=== PATIENT | male | born 1955 | race Caucasian/White ===

== ENCOUNTER 2021-08-04 13:38 | Inpatient (IN) | payer BC ==
[~2021-08-04] VITALS: Ht 180.3 cm; Wt 116.4 kg
[2021-08-04 14:12] LABS: HEMOGLOBIN 15.1 gm/dl (14.0-17.5); RED BLOOD COUNT 5.3 M/UL (4.20-5.50); WHITE BLOOD COUNT 5.5 K/UL (4.5-11.0)
[2021-08-04] MEDS ORDERED: ONDANSETRON HCL8 MG PO (19:24)
[2021-08-04] MEDS ORDERED: AZITHROMYCIN250 MG PO (19:24)
[2021-08-04] MEDS ORDERED: HYDROCHLOROTHIA25 MG PO (19:25)
[2021-08-04] MEDS ORDERED: LOPRESSOR 25 MG25 MG PO (19:25)
[2021-08-04] MEDS ORDERED: FENOFIBRATE160 MG PO (19:25)
[2021-08-04] MEDS ORDERED: LOVASTATIN40 MG PO (19:25)
[2021-08-04] MEDS ORDERED: NOVOLOG FL100 UNIT/1 SQ (19:26)
[2021-08-04] MEDS ORDERED: METFORMIN HCL1000 MG PO (19:26)
[2021-08-04] MEDS ORDERED: LEVEMIR100 UNIT/1 SQ (19:28)
[2021-08-05 03:05] LABS: HEMOGLOBIN 14.6 gm/dl (14.0-17.5); RED BLOOD COUNT 5.22 M/UL (4.20-5.50); WHITE BLOOD COUNT 6.3 K/UL (4.5-11.0)
[2021-08-06 07:25] LABS: HEMOGLOBIN 13.7 gm/dl (14.0-17.5); RED BLOOD COUNT 5.04 M/UL (4.20-5.50); WHITE BLOOD COUNT 8.6 K/UL (4.5-11.0)
--- NOTE | 2021-08-06 19:45 | NUR ---
UPON ENTERING ROOM, PATIENT C/O SOB, INABILITY TO BREATHE. PETER, RT ON FLOOR AND SAW PT. RT RECOMMENDED SENDING PT TO ICU. DR AC NOTIFIED, ORDERS RECEIVED TO TRANSFER PT TO ICU. PT PLACED ON BIPAP AND TRANSFERRED WITH ALL BELONGINGS TO ICU AND RECEIVED BY ICU NURSE.
[2021-08-07 04:53] LABS: HEMOGLOBIN 14.1 gm/dl (14.0-17.5); RED BLOOD COUNT 5.23 M/UL (4.20-5.50)
[2021-08-07 04:59] LABS: WHITE BLOOD COUNT 14.4 K/UL (4.5-11.0)
[2021-08-08 01:18] LABS: RED BLOOD COUNT 5.27 M/UL (4.20-5.50)
[2021-08-08 01:44] LABS: WHITE BLOOD COUNT 21.3 K/UL (4.5-11.0)
[2021-08-08 07:35] LABS: HEMOGLOBIN 14.5 gm/dl (14.0-17.5); RED BLOOD COUNT 5.32 M/UL (4.20-5.50); WHITE BLOOD COUNT 19.2 K/UL (4.5-11.0)
[2021-08-09 05:51] LABS: HEMOGLOBIN 13.8 gm/dl (14.0-17.5); RED BLOOD COUNT 5.03 M/UL (4.20-5.50); WHITE BLOOD COUNT 18.1 K/UL (4.5-11.0)
--- NOTE | 2021-08-09 14:24 | NUR ---
SEDATION VACATION: CUT PT DIPROVAN IN 10/07 AT 1100. MONITORING PT CLOSELY FOR CHANGES. NO CHANGES FOR APPROXIMATELY 2 HOURS. DID NEURO CHECKS ON PT WITH NO RESPONSE TO VOICE OR COMMANDS. PT BP BEGAN TO INCREASE, HR INCREASE AND O2 WENT FROM 100% TO 92%. SEDATION WAS RESTARTED AT THIS POINT. WCTM. ROBISON MADE AWARE.
[2021-08-10 05:47] LABS: HEMOGLOBIN 13.3 gm/dl (14.0-17.5); RED BLOOD COUNT 4.73 M/UL (4.20-5.50); WHITE BLOOD COUNT 14.9 K/UL (4.5-11.0)
--- NOTE | 2021-08-10 09:50 | NUR ---
CHANGED PT CENTRAL LINE DRESSING. CLEANED SITE. WNL. REAPPLIED CLEAN DRESSING.
[2021-08-11 05:24] LABS: HEMOGLOBIN 12.7 gm/dl (14.0-17.5); RED BLOOD COUNT 4.72 M/UL (4.20-5.50); WHITE BLOOD COUNT 11.7 K/UL (4.5-11.0)
[2021-08-12 05:41] LABS: HEMOGLOBIN 12.2 gm/dl (14.0-17.5); RED BLOOD COUNT 4.49 M/UL (4.20-5.50); WHITE BLOOD COUNT 10.8 K/UL (4.5-11.0)
[2021-08-13 05:37] LABS: HEMOGLOBIN 13.3 gm/dl (14.0-17.5); RED BLOOD COUNT 4.73 M/UL (4.20-5.50); WHITE BLOOD COUNT 12.1 K/UL (4.5-11.0)
[2021-08-13 06:05] LABS: BUN/CREATININE RATIO 75 (0-10)
[2021-08-14 04:27] LABS: HEMOGLOBIN 13.6 gm/dl (14.0-17.5); RED BLOOD COUNT 4.86 M/UL (4.20-5.50); WHITE BLOOD COUNT 12.9 K/UL (4.5-11.0)
[2021-08-14 04:45] LABS: BUN/CREATININE RATIO 71 (0-10)
[2021-08-15 05:17] LABS: HEMOGLOBIN 12.5 gm/dl (14.0-17.5); RED BLOOD COUNT 4.46 M/UL (4.20-5.50); WHITE BLOOD COUNT 13.4 K/UL (4.5-11.0)
[2021-08-15 06:06] LABS: BUN/CREATININE RATIO 67 (0-10)
[2021-08-16 05:23] LABS: HEMOGLOBIN 11.7 gm/dl (14.0-17.5); RED BLOOD COUNT 4.22 M/UL (4.20-5.50); WHITE BLOOD COUNT 12.5 K/UL (4.5-11.0)
[2021-08-17 04:23] LABS: HEMOGLOBIN 12.7 gm/dl (14.0-17.5); RED BLOOD COUNT 4.56 M/UL (4.20-5.50); WHITE BLOOD COUNT 16.7 K/UL (4.5-11.0)
[2021-08-17 04:44] LABS: BUN/CREATININE RATIO 82 (0-10)
[2021-08-18 04:46] LABS: HEMOGLOBIN 13.1 gm/dl (14.0-17.5); RED BLOOD COUNT 4.68 M/UL (4.20-5.50); WHITE BLOOD COUNT 14.3 K/UL (4.5-11.0)
[2021-08-18 04:59] LABS: BUN/CREATININE RATIO 75 (0-10)
--- NOTE | 2021-08-18 23:30 | NUR ---
ON ARRIVAL OF SHIFT, PATIENT ON PRECEDEX AT 0.5MCG/KG/HR. PATIENT AGITATED AND RESTLESS, SHAKING HEAD SIDE TO SIDE, AND HEART RATE IN THE 150'S. PRECEDEX INCREASED AND FENTANYL RESTARTED AND TITRATED PER PROTOCOL.
[2021-08-19 04:22] LABS: HEMOGLOBIN 13.2 gm/dl (14.0-17.5); RED BLOOD COUNT 4.81 M/UL (4.20-5.50); WHITE BLOOD COUNT 11.9 K/UL (4.5-11.0)
[2021-08-19 04:53] LABS: BUN/CREATININE RATIO 76 (0-10)
[2021-08-20 05:18] LABS: HEMOGLOBIN 12.6 gm/dl (14.0-17.5); RED BLOOD COUNT 4.55 M/UL (4.20-5.50); WHITE BLOOD COUNT 11.8 K/UL (4.5-11.0)
[2021-08-20 06:07] LABS: BUN/CREATININE RATIO 69 (0-10)
[2021-08-21 05:39] LABS: HEMOGLOBIN 12.6 gm/dl (14.0-17.5); RED BLOOD COUNT 4.45 M/UL (4.20-5.50)
[2021-08-21 05:42] LABS: WHITE BLOOD COUNT 18.6 K/UL (4.5-11.0)
[2021-08-21 06:12] LABS: BUN/CREATININE RATIO 61 (0-10)
[2021-08-22 04:56] LABS: HEMOGLOBIN 12.8 gm/dl (14.0-17.5); RED BLOOD COUNT 4.6 M/UL (4.20-5.50); WHITE BLOOD COUNT 18.7 K/UL (4.5-11.0)
[2021-08-22 05:34] LABS: BUN/CREATININE RATIO 61 (0-10)
[2021-08-23 05:01] LABS: BUN/CREATININE RATIO 62 (0-10)
--- NOTE | 2021-08-24 01:33 | NUR ---
FULL BED BATH GIVEN TO PATIENT, LAUREN DRSKemal CHANGED ON COCCYX PATIENT HAS TUNNELED PRESSURE ULCER ON BUTTOCKS WITH BROWN/SEROSANGUINEOUS DRAINAGE, PERINEAL CARE AND CATH CARE COMPLETED, NEW ELECTRODE STICKERS PLACED ON PATIENT, HOB @ 30 DEGREES, PATIENT FLOATED ON PILLOWS
[2021-08-24 05:27] LABS: BUN/CREATININE RATIO 63 (0-10)
[2021-08-24 14:46] LABS: WHITE BLOOD COUNT 18.8 K/UL (4.5-11.0)
[2021-08-24 15:12] LABS: HEMOGLOBIN 10.8 gm/dl (14.0-17.5); RED BLOOD COUNT 3.85 M/UL (4.20-5.50)
[2021-08-24 21:07] LABS: HEMOGLOBIN 10.7 gm/dl (14.0-17.5); RED BLOOD COUNT 3.78 M/UL (4.20-5.50)
[2021-08-24 21:26] LABS: WHITE BLOOD COUNT 13.8 K/UL (4.5-11.0)
[2021-08-25 04:40] LABS: HEMOGLOBIN 10.8 gm/dl (14.0-17.5); RED BLOOD COUNT 3.87 M/UL (4.20-5.50); WHITE BLOOD COUNT 10.9 K/UL (4.5-11.0)
--- NOTE | 2021-08-25 05:01 | NUR ---
STOPPED LEVOPHED, PATIENT BP IS STABLE
[2021-08-25 05:13] LABS: BUN/CREATININE RATIO 62 (0-10)
[2021-08-25] MEDS ORDERED: DIGOXIN250 MCG PO (09:55)
[2021-08-25] MEDS ORDERED: TRANSDERM-SCOP1 EACH TOP (09:55)
[2021-08-25] MEDS ORDERED: LANTUS INS100 UTS/M1 SC (09:55)
[2021-08-25] MEDS ORDERED: LEVALBUTER0.63 MG/3 NEB (09:55)
[2021-08-25] MEDS ORDERED: ELIQUIS 5 MG TAB5 MG PO (09:55)
[2021-08-25] MEDS ORDERED: NEOSPORIN OINT15 GM TOP (09:55)
[2021-08-25] MEDS ORDERED: IPRATROPIU0.2 MG/1 M NEB (09:55)
[2021-08-25] MEDS ORDERED: HUMALOG 10100 UNITS/ SC (09:55)
[2021-08-25] MEDS ORDERED: PERCOCET 5/325 T1 EA PO (10:09)
[2021-08-25] MEDS ORDERED: PANTOPRAZOLE SO40 M2 PO (10:09)
[2021-08-25] MEDS ORDERED: PREDNISONE 10 M10 MG GT (10:09)
[2021-08-25] MEDS ORDERED: AMIODARONE HCL200 MG PO (10:09)
[2021-08-25] MEDS ORDERED: FENTANYL1 EACH TOP (10:09)
[2021-08-25] MEDS ORDERED: LOPRESSOR 50 MG50 MG PO (10:11)
[2021-08-26 09:42] LABS: HEMOGLOBIN 9.9 gm/dl (14.0-17.5); RED BLOOD COUNT 3.66 M/UL (4.20-5.50); WHITE BLOOD COUNT 9.9 K/UL (4.5-11.0)
[2021-08-27 05:17] LABS: HEMOGLOBIN 9.8 gm/dl (14.0-17.5); RED BLOOD COUNT 3.51 M/UL (4.20-5.50); WHITE BLOOD COUNT 8.5 K/UL (4.5-11.0)
[2021-08-28 04:17] LABS: HEMOGLOBIN 8.9 gm/dl (14.0-17.5); RED BLOOD COUNT 3.26 M/UL (4.20-5.50); WHITE BLOOD COUNT 6.8 K/UL (4.5-11.0)
[2021-08-28 12:12] LABS: HEMOGLOBIN 10.5 gm/dl (14.0-17.5)
[2021-08-28 12:13] LABS: RED BLOOD COUNT 3.72 M/UL (4.20-5.50); WHITE BLOOD COUNT 9.5 K/UL (4.5-11.0)
[2021-08-29 05:15] LABS: HEMOGLOBIN 9.9 gm/dl (14.0-17.5); RED BLOOD COUNT 3.5 M/UL (4.20-5.50); WHITE BLOOD COUNT 8.5 K/UL (4.5-11.0)
[2021-08-30 05:22] LABS: HEMOGLOBIN 9.9 gm/dl (14.0-17.5); RED BLOOD COUNT 3.51 M/UL (4.20-5.50); WHITE BLOOD COUNT 8.2 K/UL (4.5-11.0)
[2021-08-30 06:02] LABS: BUN/CREATININE RATIO 72 (0-10)
[2021-08-31 05:03] LABS: HEMOGLOBIN 10.3 gm/dl (14.0-17.5); RED BLOOD COUNT 3.61 M/UL (4.20-5.50); WHITE BLOOD COUNT 6.9 K/UL (4.5-11.0)
[2021-09-01 04:21] LABS: BUN/CREATININE RATIO 76 (0-10)
[2021-09-01 07:42] LABS: HEMOGLOBIN 9.3 gm/dl (14.0-17.5); RED BLOOD COUNT 3.37 M/UL (4.20-5.50); WHITE BLOOD COUNT 6.3 K/UL (4.5-11.0)
[2021-09-02 05:45] LABS: HEMOGLOBIN 8.9 gm/dl (14.0-17.5); RED BLOOD COUNT 3.13 M/UL (4.20-5.50); WHITE BLOOD COUNT 6.8 K/UL (4.5-11.0)
[2021-09-02 10:12] LABS: HBSAG SCREEN Negative (Negative); HEP A AB, IGM Negative (Negative); HEP B CORE AB, IGM Negative (Negative); HEP C VIRUS AB <0.1 (0.0-0.9)
[2021-09-03 07:28] LABS: HEMOGLOBIN 9.3 gm/dl (14.0-17.5); RED BLOOD COUNT 3.28 M/UL (4.20-5.50); WHITE BLOOD COUNT 6.8 K/UL (4.5-11.0)
[2021-09-03 07:43] LABS: BUN/CREATININE RATIO 74 (0-10)
[2021-09-04 04:24] LABS: HEMOGLOBIN 9.3 gm/dl (14.0-17.5); RED BLOOD COUNT 3.27 M/UL (4.20-5.50); WHITE BLOOD COUNT 7.3 K/UL (4.5-11.0)
[2021-09-04 04:46] LABS: BUN/CREATININE RATIO 79 (0-10)
[2021-09-04 11:13] LABS: CREATININE, URINE 16.4 mg/dL (Not Estab.)
[2021-09-05 05:38] LABS: HEMOGLOBIN 8.8 gm/dl (14.0-17.5); RED BLOOD COUNT 3.23 M/UL (4.20-5.50); WHITE BLOOD COUNT 8.1 K/UL (4.5-11.0)
[2021-09-05 06:09] LABS: BUN/CREATININE RATIO 92 (0-10)
[2021-09-06 08:28] LABS: HEMOGLOBIN 8.8 gm/dl (14.0-17.5); RED BLOOD COUNT 3.23 M/UL (4.20-5.50); WHITE BLOOD COUNT 8.4 K/UL (4.5-11.0)
[2021-09-06 08:45] LABS: BUN/CREATININE RATIO 98 (0-10)
[2021-09-07 04:51] LABS: BUN/CREATININE RATIO 80 (0-10)
[2021-09-08 05:32] LABS: HEMOGLOBIN 8.9 gm/dl (14.0-17.5); RED BLOOD COUNT 3.14 M/UL (4.20-5.50); WHITE BLOOD COUNT 9.8 K/UL (4.5-11.0)
[2021-09-08 05:45] LABS: BUN/CREATININE RATIO 94 (0-10)
[2021-09-09 05:59] LABS: HEMOGLOBIN 8.7 gm/dl (14.0-17.5); RED BLOOD COUNT 3.18 M/UL (4.20-5.50); WHITE BLOOD COUNT 8.9 K/UL (4.5-11.0)
[2021-09-09 06:32] LABS: BUN/CREATININE RATIO 89 (0-10)
[2021-09-10 06:05] LABS: BUN/CREATININE RATIO 91 (0-10)
[2021-09-11 05:24] LABS: HEMOGLOBIN 8.8 gm/dl (14.0-17.5); RED BLOOD COUNT 3.14 M/UL (4.20-5.50); WHITE BLOOD COUNT 9.1 K/UL (4.5-11.0)
[2021-09-11 05:25] LABS: BUN/CREATININE RATIO 82 (0-10)
[2021-09-11] MEDS ORDERED: LASIX20 MG PO (10:20)
[2021-09-11] MEDS ORDERED: LOPRESSOR 50 MG50 MG PO (10:25)
== END 2021-09-11 13:11 | DRG 4 ==
LOC: ER1 13:38 → PROG CARE 15:43 → CDU 15:43 → CCU 15:43 → PROG CARE 16:35 → CCU 08-06 20:30
PROVIDERS: Emergency Medicine; Internal Medicine; Internal Medicine Cardiovascular Disease; Internal Medicine Nephrology; Internal Medicine Pulmonary Disease; Physician Assistant; Physician Assistant Medical; ADMIT Internal Medicine
PROC: 3E0333Z Introduction of Anti-inflammatory into Peripheral Vein, Percutaneous Approach (ICD-10-PCS; 2021-08-04)
PROC: XW033H5 Introduction of Tocilizumab into Peripheral Vein, Percutaneous Approach, New Technology Group 5 (ICD-10-PCS; 2021-08-05)
PROC: 5A0945A Assistance with Respiratory Ventilation, 24-96 Consecutive Hours, High Flow/Velocity Cannula (ICD-10-PCS; 2021-08-05)
PROC: B24BZZZ Ultrasonography of Heart with Aorta (ICD-10-PCS; 2021-08-06)
PROC: 5A09357 Assistance with Respiratory Ventilation, Less than 24 Consecutive Hours, Continuous Positive Airway Pressure (ICD-10-PCS; 2021-08-06)
PROC: 0DH67UZ Insertion of Feeding Device into Stomach, Via Natural or Artificial Opening (ICD-10-PCS; principal; 2021-08-07)
PROC: 3E0G76Z Introduction of Nutritional Substance into Upper GI, Via Natural or Artificial Opening (ICD-10-PCS; 2021-08-07)
PROC: 5A1955Z Respiratory Ventilation, Greater than 96 Consecutive Hours (ICD-10-PCS; 2021-08-07)
PROC: 0BH17EZ Insertion of Endotracheal Airway into Trachea, Via Natural or Artificial Opening (ICD-10-PCS; 2021-08-07)
PROC: 02HV33Z Insertion of Infusion Device into Superior Vena Cava, Percutaneous Approach (ICD-10-PCS; 2021-08-08)
PROC: B548ZZA Ultrasonography of Superior Vena Cava, Guidance (ICD-10-PCS; 2021-08-08)
PROC: 3E033XZ Introduction of Vasopressor into Peripheral Vein, Percutaneous Approach (ICD-10-PCS; 2021-08-23)
PROC: 0BH17EZ Insertion of Endotracheal Airway into Trachea, Via Natural or Artificial Opening (ICD-10-PCS; 2021-08-23)
PROC: 5A1955Z Respiratory Ventilation, Greater than 96 Consecutive Hours (ICD-10-PCS; 2021-08-23)
PROC: 0BH17EZ Insertion of Endotracheal Airway into Trachea, Via Natural or Artificial Opening (ICD-10-PCS; 2021-08-23)
PROC: 0B113F4 Bypass Trachea to Cutaneous with Tracheostomy Device, Percutaneous Approach (ICD-10-PCS; 2021-08-27)
PROC: 5A1955Z Respiratory Ventilation, Greater than 96 Consecutive Hours (ICD-10-PCS; 2021-08-27)
PROC: 0DH63UZ Insertion of Feeding Device into Stomach, Percutaneous Approach (ICD-10-PCS; 2021-08-27)
PROC: 3E0G76Z Introduction of Nutritional Substance into Upper GI, Via Natural or Artificial Opening (ICD-10-PCS; 2021-08-27)
PROC: 30233L1 Transfusion of Nonautologous Fresh Plasma into Peripheral Vein, Percutaneous Approach (ICD-10-PCS; 2021-09-01)
DX: U07.1 COVID-19 (principal); L89.153 Pressure ulcer of sacral region, stage 3; J12.82 Pneumonia due to coronavirus disease 2019; G92.8 Other toxic encephalopathy; R65.21 Severe sepsis with septic shock; A41.89 Other specified sepsis; J80 Acute respiratory distress syndrome; N17.0 Acute kidney failure with tubular necrosis; J15.1 Pneumonia due to Pseudomonas; J69.0 Pneumonitis due to inhalation of food and vomit; N17.9 Acute kidney failure, unspecified; E87.0 Hyperosmolality and hypernatremia; G93.1 Anoxic brain damage, not elsewhere classified; J95.01 Hemorrhage from tracheostomy stoma; E87.2 Acidosis; Z99.11 Dependence on respirator [ventilator] status; J44.0 Chronic obstructive pulmonary disease with (acute) lower respiratory infection; M62.82 Rhabdomyolysis; K59.00 Constipation, unspecified; E66.9 Obesity, unspecified; J32.9 Chronic sinusitis, unspecified; L89.810 Pressure ulcer of head, unstageable; E11.22 Type 2 diabetes mellitus with diabetic chronic kidney disease; K80.80 Other cholelithiasis without obstruction; N18.2 Chronic kidney disease, stage 2 (mild); E78.5 Hyperlipidemia, unspecified; I12.9 Hypertensive chronic kidney disease with stage 1 through stage 4 chronic kidney disease, or unspecified chronic kidney disease; E88.09 Other disorders of plasma-protein metabolism, not elsewhere classified; R79.89 Other specified abnormal findings of blood chemistry; L89.152 Pressure ulcer of sacral region, stage 2; L89.896 Pressure-induced deep tissue damage of other site; F17.210 Nicotine dependence, cigarettes, uncomplicated; L89.812 Pressure ulcer of head, stage 2; L89.816 Pressure-induced deep tissue damage of head; I48.0 Paroxysmal atrial fibrillation; E87.5 Hyperkalemia; D63.1 Anemia in chronic kidney disease; E11.65 Type 2 diabetes mellitus with hyperglycemia; E86.0 Dehydration; Y83.8 Other surgical procedures as the cause of abnormal reaction of the patient, or of later complication, without mention of misadventure at the time of the procedure; R53.81 Other malaise; Z79.01 Long term (current) use of anticoagulants; Z79.4 Long term (current) use of insulin; Z83.3 Family history of diabetes mellitus; Z98.890 Other specified postprocedural states; Z68.36 Body mass index [BMI] 36.0-36.9, adult
CPT/HCPCS: ECHO; 31500; 36415; 36430; 36600; 70450; 71045; 74018; 76705; 80048; 80053; 80074; 80076; 80162; 80202; 81001; 82043; 82140; 82550; 82553; 82570; 82607; 82728; 82746; 82803; 82962; 82977; 83036; 83605; 83615; 83735; 83874; 83880; 84100; 84132; 84133; 84156; 84300; 84439; 84443; 84484; 85007; 85025; 85027; 85379; 85384; 85610; 85730; 86140; 86850; 86900; 86901; 86927; 87040; 87070; 87077; 87081; 87086; 87186; 87205; 89050; 92526; 92610; 93005; 93306; 94002; 94003; 94640; 94660; 94668; 94760; 96374; 96375; 97110; 97110-GP-CQ; 97162; 97164; 97167; 97168; 97530; 97530-GP-CQ; 99285; A6212; C1769; C9113; J0330; J0360; J0692; J0696; J1100; J1160; J1205; J1644; J1940; J2020; J2060; J2185; J2270; J2370; J2405; J2704; J2765; J2930; J3010; J3370; J7030; J7040; J7050; J7070; P9017; P9047; Q0249